=== PATIENT | female | born 1980 | race African-American/Black ===

== ENCOUNTER 2017-08-10 20:41 | Inpatient (IN) | payer BC, OTHER ==
[2017-08-11] MEDS: SOD CHLORIDE 0.9% 1,000 ML IV (00:01)
[2017-08-11 00:07] LABS: ADD MAN DIFF? NO
[2017-08-11] MEDS: ONDANSETRON 4 MG INJ IV (00:07)
[2017-08-11] MEDS: morphine 4 MG/ML VIAL IV (00:07)
[2017-08-11 00:27] LABS: ALANINE AMINOTRANSFERASE 20 IU/L (13-69); ALBUMIN 4.1 g/dl (3.3-4.9); ALKALINE PHOSPHATASE 101 IU/L (42-121); ANION GAP 13 (8-16); ASPARTATE AMINO TRANSFERASE 13 IU/L (15-46); BILIRUBIN,INDIRECT 0.7 mg/dl (0-1.1); BILIRUBIN,TOTAL 0.7 mg/dl (0.2-1.3); BLOOD UREA NITROGEN 9 mg/dl (7-20); CALCIUM 9.3 mg/dl (8.4-10.2); CARBON DIOXIDE 29 mmol/L (21-31); CHLORIDE 108 mmol/L (97-110); CREATININE 0.97 mg/dl (0.44-1.00); GLUCOSE 88 mg/dl (70-220); LIPASE 100 U/L (23-300); POTASSIUM 4.1 mmol/L (3.5-5.1); SODIUM 146 mmol/L (135-144); TOTAL PROTEIN 7.8 g/dl (6.1-8.1)
[2017-08-11 01:08] LABS: WHITE BLOOD COUNT 10.7 10^3/ul (4.8-10.8)
[2017-08-11 01:08] LABS: BASOPHIL # 0.1 10^3/ul (0.0-0.1); BASOPHILS % 0.9 % (0.0-2.0); EOSINOPHILS # 0.2 10^3/ul (0.0-0.5); EOSINOPHILS % 1.6 % (0.0-7.0); HEMATOCRIT 38.9 % (37.0-47.0); HEMOGLOBIN 11.3 g/dl (12.0-16.0); LYMPHOCYTES # 4.5 10^3/ul (0.8-2.9); LYMPHOCYTES % 41.6 % (15.0-51.0); MEAN CORPUSCULAR HEMOGLOBIN 22.4 pg (29.0-33.0); MEAN CORPUSCULAR VOLUME 77.2 fl (82.0-101.0); MEAN PLATELET VOLUME 9.5 fl (7.4-10.4); MONOCYTE # 0.8 10^3/ul (0.3-0.9); MONOCYTES % 7.6 % (0.0-11.0); NEUTROPHIL # 5.2 10^3/ul (1.6-7.5); PLATELET COUNT 521 10^3/UL (140-415); RED BLOOD COUNT 5.04 10^6/ul (4.20-5.40); RED CELL DISTRIBUTION WIDTH 18.6 % (11.5-14.5)
[2017-08-11] MEDS ORDERED: ONDANSETRON 4 MG INJ IV (02:00)
[2017-08-11] MEDS ORDERED: NACL 0.9% 3 ML SYG IV (02:00)
[2017-08-11] MEDS ORDERED: morphine 2 MG INJ IV (02:00)
[2017-08-11] MEDS ORDERED: ACETAMINOPHEN 325 MG TAB PO (02:00)
[2017-08-11] MEDS: HYDROCODONE/APAP (5/325) TAB PO (06:02)
[2017-08-11 06:58] LABS: ADD UMIC YES; UR ASCORBIC ACID NEGATIVE (NEGATIVE); UR BILIRUBIN (Dip) NEGATIVE (NEGATIVE); UR BLOOD (Dip) 3+ mg/dL (NEGATIVE); UR CLARITY CLEAR (CLEAR); UR COLOR YELLOW (YELLOW); UR GLUCOSE (Dip) NEGATIVE (NEGATIVE); UR KETONES (Dip) NEGATIVE (NEGATIVE); UR LEUKOCYTE ESTERASE (Dip) 1+ Leu/ul (NEGATIVE); UR MUCUS FEW /HPF (NONE SEEN); UR NITRITE (Dip) NEGATIVE (NEGATIVE); UR RBC 2 /HPF (0-5); UR SPECIFIC GRAVITY (Dip) 1.012 (1.003-1.030); UR SQUAMOUS EPITHELIAL CELL FEW /HPF (FEW); UR TOTAL PROTEIN (Dip) NEGATIVE (NEGATIVE); UR UROBILINOGEN (Dip) NEGATIVE (NEGATIVE); UR WBC 5 /HPF (0-5)
[2017-08-11] MEDS: ENOXAPARIN 40 MG/0.4 ML SYG SC (08:42)
[2017-08-11 09:14] LABS: HIV 1&2 ANTIBODY NEGATIVE (NEGATIVE)
[2017-08-11] MEDS ORDERED: MELOXICAM 7.5 MG TAB PO (11:00)
[2017-08-11] MEDS: KETOROLAC 15 MG INJ IV ×2 (11:24→18:00)
[2017-08-11 21:09] LABS: RAPID PLASMA REAGIN NONREACTIVE (NR)
[2017-08-12] MEDS: HYDROCODONE/APAP (5/325) TAB PO (00:20)
[2017-08-12 05:17] LABS: ADD MAN DIFF? NO
[2017-08-12 05:24] LABS: WHITE BLOOD COUNT 8.6 10^3/ul (4.8-10.8)
[2017-08-12 05:24] LABS: BASOPHIL # 0.1 10^3/ul (0.0-0.1); BASOPHILS % 0.9 % (0.0-2.0); EOSINOPHILS # 0.2 10^3/ul (0.0-0.5); EOSINOPHILS % 2.2 % (0.0-7.0); HEMATOCRIT 33.9 % (37.0-47.0); HEMOGLOBIN 10.1 g/dl (12.0-16.0); LYMPHOCYTES # 3.9 10^3/ul (0.8-2.9); MEAN CORPUSCULAR HEMOGLOBIN 22.8 pg (29.0-33.0); MEAN CORPUSCULAR HGB CONC 29.8 g/dl (32.0-37.0); MEAN CORPUSCULAR VOLUME 76.5 fl (82.0-101.0); MEAN PLATELET VOLUME 9.5 fl (7.4-10.4); MONOCYTE # 0.8 10^3/ul (0.3-0.9); MONOCYTES % 8.7 % (0.0-11.0); NEUTROPHIL # 3.7 10^3/ul (1.6-7.5); PLATELET COUNT 432 10^3/UL (140-415); RED BLOOD COUNT 4.43 10^6/ul (4.20-5.40); RED CELL DISTRIBUTION WIDTH 17.9 % (11.5-14.5)
[2017-08-12 05:59] LABS: ANION GAP 12 (8-16); BLOOD UREA NITROGEN 12 mg/dl (7-20); CALCIUM 8.8 mg/dl (8.4-10.2); CARBON DIOXIDE 29 mmol/L (21-31); CHLORIDE 107 mmol/L (97-110); GLUCOSE 88 mg/dl (70-220); POTASSIUM 3.8 mmol/L (3.5-5.1); SODIUM 144 mmol/L (135-144)
[2017-08-12 06:46] LABS: HEMOGLOBIN A1C 5.4 % (0-5.9)
[2017-08-12] MEDS: GABAPENTIN 300 MG CAP PO ×2 (08:43→12:34)
[2017-08-12] MEDS: KETOROLAC 15 MG INJ IV (08:44)
[2017-08-12 09:36] LABS: ADD MAN DIFF? NO
[2017-08-12 09:45] LABS: BASOPHIL # 0.1 10^3/ul (0.0-0.1); BASOPHILS % 0.7 % (0.0-2.0); EOSINOPHILS # 0.1 10^3/ul (0.0-0.5); EOSINOPHILS % 1.4 % (0.0-7.0); HEMATOCRIT 34.8 % (37.0-47.0); HEMOGLOBIN 10.4 g/dl (12.0-16.0); LYMPHOCYTES # 2.6 10^3/ul (0.8-2.9); LYMPHOCYTES % 28.9 % (15.0-51.0); MEAN CORPUSCULAR HGB CONC 29.9 g/dl (32.0-37.0); MEAN CORPUSCULAR VOLUME 76.8 fl (82.0-101.0); MEAN PLATELET VOLUME 9.6 fl (7.4-10.4); MONOCYTE # 0.7 10^3/ul (0.3-0.9); MONOCYTES % 7.3 % (0.0-11.0); NEUTROPHIL # 5.6 10^3/ul (1.6-7.5); NEUTROPHILS % 61.3 % (39.0-77.0); PLATELET COUNT 445 10^3/UL (140-415); RED BLOOD COUNT 4.53 10^6/ul (4.20-5.40)
[2017-08-12 09:45] LABS: WHITE BLOOD COUNT 9.1 10^3/ul (4.8-10.8)
[2017-08-12] MEDS: LORAZEPAM 1 MG TAB PO (10:54)
== END 2017-08-12 17:20 | disposition home or self-care (01) | DRG 776 ==
LOC: E/R 20:41 → MS1 08-11 01:36
DX: O99.355 Diseases of the nervous system complicating the puerperium (principal); E87.0 Hyperosmolality and hypernatremia; Z68.41 Body mass index [BMI] 40.0-44.9, adult; O98.33 Other infections with a predominantly sexual mode of transmission complicating the puerperium; A63.0 Anogenital (venereal) warts; O99.285 Endocrine, nutritional and metabolic diseases complicating the puerperium; M54.5 Low back pain; O99.215 Obesity complicating the puerperium; E66.01 Morbid (severe) obesity due to excess calories; O99.345 Other mental disorders complicating the puerperium; F41.9 Anxiety disorder, unspecified; G89.18 Other acute postprocedural pain
CPT/HCPCS: 36415; 72148; 80048; 80053; 81001; 83036; 83690; 83735; 85025; 86592; 86692; 86703; 87086; 96374; 96375; 97116; 97161; 99285-25

== ENCOUNTER 2018-07-31 12:32 | Inpatient (IN) | payer BC ==
[2018-07-31 13:19] LABS: ADD MAN DIFF? NO
[2018-07-31 13:20] LABS: BASOPHIL # 0.1 10^3/ul (0.0-0.1); BASOPHILS % 0.5 % (0.0-2.0); EOSINOPHILS # 0.1 10^3/ul (0.0-0.5); HEMATOCRIT 39.8 % (37.0-47.0); HEMOGLOBIN 12.2 g/dl (12.0-16.0); LYMPHOCYTES # 3.6 10^3/ul (0.8-2.9); LYMPHOCYTES % 24.7 % (15.0-51.0); MEAN CORPUSCULAR HEMOGLOBIN 25.1 pg (29.0-33.0); MEAN CORPUSCULAR HGB CONC 30.7 g/dl (32.0-37.0); MEAN CORPUSCULAR VOLUME 81.7 fl (82.0-101.0); MEAN PLATELET VOLUME 8.8 fl (7.4-10.4); MONOCYTE # 1.2 10^3/ul (0.3-0.9); MONOCYTES % 7.9 % (0.0-11.0); NEUTROPHIL # 9.6 10^3/ul (1.6-7.5); NEUTROPHILS % 65.6 % (39.0-77.0); PLATELET COUNT 447 10^3/UL (140-415); RED BLOOD COUNT 4.87 10^6/ul (4.20-5.40); RED CELL DISTRIBUTION WIDTH 15.9 % (11.5-14.5)
[2018-07-31 13:20] LABS: WHITE BLOOD COUNT 14.6 10^3/ul (4.8-10.8)
[2018-07-31] MEDS: DIAZEPAM 5 MG/ML SYG IV (13:26)
[2018-07-31] MEDS: ONDANSETRON 4 MG INJ IV (13:26)
[2018-07-31] MEDS: HYDROmorphONE 1 MG/ML SYG IV (13:27)
[2018-07-31 13:40] LABS: PARTIAL THROMBOPLASTIN TIME 29.2 Sec (23.0-35.0)
[2018-07-31 13:42] LABS: ANION GAP 8 (5-13); BLOOD UREA NITROGEN 13 mg/dl (7-20); CARBON DIOXIDE 28 mmol/L (21-31); CHLORIDE 104 mmol/L (97-110); CREATININE 0.81 mg/dl (0.44-1.00); Estimated GFR > 60 mL/min (>60); GLUCOSE 94 mg/dl (70-220); POTASSIUM 3.9 mmol/L (3.5-5.1); SODIUM 140 mmol/L (135-144)
[2018-07-31 13:50] LABS: INR 0.95; PROTIME 12.8 Sec (11.9-14.9)
[2018-07-31] MEDS: KETOROLAC 15 MG INJ IV (15:14)
[2018-07-31] MEDS: SOD CHLORIDE 0.9% 1,000 ML IV (15:14)
[2018-07-31] MEDS ORDERED: ONDANSETRON 4 MG INJ IV ×2 (18:00→21:00)
[2018-07-31] MEDS ORDERED: ACETAMINOPHEN 325 MG TAB PO ×2 (18:00→21:00)
[2018-07-31] MEDS ORDERED: ALBUTEROL/IPRATROPIUM (NEB) 3 ML AMP HHN (21:00)
[2018-07-31] MEDS ORDERED: NACL 0.9% 3 ML SYG IV (21:00)
[2018-07-31] MEDS: GABAPENTIN 300 MG CAP PO (22:15)
[2018-07-31] MEDS: traZODone 100 MG TAB PO (22:15)
[2018-07-31] MEDS: DEXAMETHASONE 4 MG/ML 1 ML INJ IV (23:12)
[2018-08-01] MEDS: HYDROmorphONE 0.5 MG/0.5 ML SYG IV ×2 (01:52→09:00)
[2018-08-01 05:54] LABS: ADD MAN DIFF? NO
[2018-08-01 06:03] LABS: BASOPHILS % 0.1 % (0.0-2.0); HEMATOCRIT 41.9 % (37.0-47.0); HEMOGLOBIN 12.8 g/dl (12.0-16.0); LYMPHOCYTES # 1.1 10^3/ul (0.8-2.9); LYMPHOCYTES % 7.2 % (15.0-51.0); MEAN CORPUSCULAR HGB CONC 30.5 g/dl (32.0-37.0); MEAN CORPUSCULAR VOLUME 81.7 fl (82.0-101.0); MEAN PLATELET VOLUME 9.2 fl (7.4-10.4); MONOCYTE # 0.2 10^3/ul (0.3-0.9); NEUTROPHIL # 13.4 10^3/ul (1.6-7.5); NEUTROPHILS % 91.1 % (39.0-77.0); PLATELET COUNT 490 10^3/UL (140-415); RED BLOOD COUNT 5.13 10^6/ul (4.20-5.40); RED CELL DISTRIBUTION WIDTH 15.8 % (11.5-14.5)
[2018-08-01 06:03] LABS: WHITE BLOOD COUNT 14.8 10^3/ul (4.8-10.8)
[2018-08-01 06:33] LABS: ALANINE AMINOTRANSFERASE 12 IU/L (13-69); ALBUMIN 4.3 g/dl (3.3-4.9); ALBUMIN/GLOBULIN RATIO 1.26; ALKALINE PHOSPHATASE 71 IU/L (42-121); ANION GAP 14 (5-13); ASPARTATE AMINO TRANSFERASE 16 IU/L (15-46); BILIRUBIN,INDIRECT 0.5 mg/dl (0-1.1); BILIRUBIN,TOTAL 0.5 mg/dl (0.2-1.3); BLOOD UREA NITROGEN 11 mg/dl (7-20); CALCIUM 9.4 mg/dl (8.4-10.2); CARBON DIOXIDE 24 mmol/L (21-31); CHLORIDE 105 mmol/L (97-110); CREATININE 0.74 mg/dl (0.44-1.00); Estimated GFR > 60 mL/min (>60); GLUCOSE 134 mg/dl (70-220); MAGNESIUM 2.3 mg/dl (1.7-2.5); PHOSPHORUS 3.5 mg/dl (2.5-4.9); POTASSIUM 4.6 mmol/L (3.5-5.1); SODIUM 143 mmol/L (135-144); TOTAL PROTEIN 7.7 g/dl (6.1-8.1)
[2018-08-01] MEDS: ARIPIPRAZOLE 5 MG TAB PO (09:02)
[2018-08-01] MEDS: GABAPENTIN 300 MG CAP PO ×3 (09:02→20:54)
[2018-08-01] MEDS: DULOXETINE 30 MG CAP DR PO (09:06)
[2018-08-01] MEDS ORDERED: morphine 4 MG/ML VIAL IV (11:00)
[2018-08-01 12:51] LABS: ADD UMIC YES; UR ASCORBIC ACID NEGATIVE (NEGATIVE); UR BACTERIA FEW /HPF (NONE SEEN); UR BILIRUBIN (Dip) NEGATIVE (NEGATIVE); UR BLOOD (Dip) 3+ mg/dL (NEGATIVE); UR CLARITY SLIGHTLY CLOUDY (CLEAR); UR COLOR YELLOW (YELLOW); UR GLUCOSE (Dip) NEGATIVE (NEGATIVE); UR KETONES (Dip) NEGATIVE (NEGATIVE); UR LEUKOCYTE ESTERASE (Dip) NEGATIVE Leu/ul (NEGATIVE); UR MUCUS FEW /HPF (NONE SEEN); UR NITRITE (Dip) NEGATIVE (NEGATIVE); UR RBC > 182 /HPF (0-5); UR SPECIFIC GRAVITY (Dip) 1.021 (1.003-1.030); UR SQUAMOUS EPITHELIAL CELL FEW /HPF (FEW); UR TOTAL PROTEIN (Dip) NEGATIVE (NEGATIVE); UR UROBILINOGEN (Dip) NEGATIVE (NEGATIVE); UR WBC 6 /HPF (0-5)
[2018-08-01 13:00] LABS: AMPHETAMINE/METHAMPHETAMINE Negative (NEGATIVE); BARBITURATES Negative (NEGATIVE); BENZODIAZEPINES Negative (NEGATIVE); CANNABINOIDS Negative (NEGATIVE); COCAINE Negative (NEGATIVE); OPIATES Positive (NEGATIVE)
[2018-08-01] MEDS: HYDROCODONE/APAP (5/325) TAB PO (13:05)
[2018-08-01] MEDS: OXYCODONE/ACETAMINOPHEN (5/325) TAB PO (16:55)
[2018-08-01] MEDS: traZODone 100 MG TAB PO (20:54)
[2018-08-02 05:52] LABS: ADD MAN DIFF? NO
[2018-08-02 06:00] LABS: WHITE BLOOD COUNT 16.9 10^3/ul (4.8-10.8)
[2018-08-02 06:00] LABS: ABNORMAL IP MESSAGE 1; BASOPHIL # 0.1 10^3/ul (0.0-0.1); BASOPHILS % 0.3 % (0.0-2.0); EOSINOPHILS # 0.1 10^3/ul (0.0-0.5); EOSINOPHILS % 0.5 % (0.0-7.0); HEMOGLOBIN 11.6 g/dl (12.0-16.0); LYMPHOCYTES # 5.1 10^3/ul (0.8-2.9); LYMPHOCYTES % 29.9 % (15.0-51.0); MEAN CORPUSCULAR HEMOGLOBIN 25.4 pg (29.0-33.0); MEAN CORPUSCULAR HGB CONC 30.5 g/dl (32.0-37.0); MEAN CORPUSCULAR VOLUME 83.3 fl (82.0-101.0); MEAN PLATELET VOLUME 9.2 fl (7.4-10.4); MONOCYTE # 1.1 10^3/ul (0.3-0.9); MONOCYTES % 6.7 % (0.0-11.0); NEUTROPHIL # 10.5 10^3/ul (1.6-7.5); NEUTROPHILS % 62.2 % (39.0-77.0); PLATELET COUNT 438 10^3/UL (140-415); RED BLOOD COUNT 4.56 10^6/ul (4.20-5.40); RED CELL DISTRIBUTION WIDTH 15.9 % (11.5-14.5)
[2018-08-02 06:13] LABS: POSITIVE DIFF @See below
[2018-08-02 06:20] LABS: IRON 41 ug/dl (35-150)
[2018-08-02 06:29] LABS: % IRON SATURATION 13 % SAT (22-52); TOTAL IRON BINDING CAPACITY 322 ug/dl (241-421)
[2018-08-02 06:38] LABS: ANION GAP 9 (5-13); BLOOD UREA NITROGEN 15 mg/dl (7-20); CALCIUM 8.9 mg/dl (8.4-10.2); CARBON DIOXIDE 28 mmol/L (21-31); CHLORIDE 105 mmol/L (97-110); Estimated GFR > 60 mL/min (>60); GLUCOSE 96 mg/dl (70-220); MAGNESIUM 2.2 mg/dl (1.7-2.5); SODIUM 142 mmol/L (135-144)
[2018-08-02 06:56] LABS: THYROID STIMULATING HORMONE 0.263 MIU/L (0.465-4.680)
[2018-08-02 07:49] LABS: HEMOGLOBIN A1C 5.5 % (0-5.9)
[2018-08-02] MEDS: ARIPIPRAZOLE 5 MG TAB PO (08:57)
[2018-08-02] MEDS: DULOXETINE 30 MG CAP DR PO (08:57)
[2018-08-02] MEDS: GABAPENTIN 300 MG CAP PO ×2 (08:57→12:46)
[2018-08-02] MEDS: HYDROCODONE/APAP (5/325) TAB PO ×2 (09:02→19:07)
[2018-08-02] MEDS: POLYETHYLENE GLYCOL 17 GM PACKET PO (14:18)
[2018-08-02] MEDS: CEFTRIAXONE 1 GM/50 ML (PMX) 50 ML IVPB (18:58)
[2018-08-02] MEDS: traZODone 100 MG TAB PO (21:15)
[2018-08-02] MEDS: GABAPENTIN 400 MG CAP PO (21:15)
[2018-08-03 05:40] LABS: ADD MAN DIFF? NO
[2018-08-03 05:54] LABS: WHITE BLOOD COUNT 14.8 10^3/ul (4.8-10.8)
[2018-08-03 05:54] LABS: ABNORMAL IP MESSAGE 1; BASOPHIL # 0.1 10^3/ul (0.0-0.1); BASOPHILS % 0.6 % (0.0-2.0); EOSINOPHILS # 0.2 10^3/ul (0.0-0.5); EOSINOPHILS % 1.5 % (0.0-7.0); HEMATOCRIT 38.9 % (37.0-47.0); HEMOGLOBIN 11.7 g/dl (12.0-16.0); LYMPHOCYTES # 6.3 10^3/ul (0.8-2.9); LYMPHOCYTES % 42.3 % (15.0-51.0); MEAN CORPUSCULAR HEMOGLOBIN 25.1 pg (29.0-33.0); MEAN CORPUSCULAR HGB CONC 30.1 g/dl (32.0-37.0); MEAN CORPUSCULAR VOLUME 83.5 fl (82.0-101.0); MEAN PLATELET VOLUME 9.1 fl (7.4-10.4); MONOCYTE # 1.1 10^3/ul (0.3-0.9); MONOCYTES % 7.3 % (0.0-11.0); NEUTROPHIL # 7.1 10^3/ul (1.6-7.5); PLATELET COUNT 428 10^3/UL (140-415); RED BLOOD COUNT 4.66 10^6/ul (4.20-5.40); RED CELL DISTRIBUTION WIDTH 15.8 % (11.5-14.5)
[2018-08-03 06:12] LABS: ANION GAP 8 (5-13); BLOOD UREA NITROGEN 13 mg/dl (7-20); CALCIUM 8.9 mg/dl (8.4-10.2); CARBON DIOXIDE 30 mmol/L (21-31); CHLORIDE 105 mmol/L (97-110); CREATININE 0.93 mg/dl (0.44-1.00); Estimated GFR > 60 mL/min (>60); GLUCOSE 90 mg/dl (70-220); POTASSIUM 4.1 mmol/L (3.5-5.1); SODIUM 143 mmol/L (135-144)
[2018-08-03 06:24] LABS: FREE THYROXINE INDEX (Calc) 2.13 ug/ml (0.65-3.89); T3 UPTAKE 34.3 % (23.5-40.5); T4 (THYROXINE) 6.2 ug/dl (5.5-11.0)
[2018-08-03 06:37] LABS: THYROID STIMULATING HORMONE 0.827 MIU/L (0.465-4.680)
[2018-08-03 06:44] LABS: POSITIVE DIFF @See below
[2018-08-03] MEDS: HYDROCODONE/APAP (5/325) TAB PO ×2 (07:22→18:18)
[2018-08-03] MEDS: POLYETHYLENE GLYCOL 17 GM PACKET PO (08:15)
[2018-08-03] MEDS: ARIPIPRAZOLE 5 MG TAB PO (08:15)
[2018-08-03] MEDS: GABAPENTIN 400 MG CAP PO ×3 (08:15→21:24)
[2018-08-03] MEDS: DULOXETINE 30 MG CAP DR PO (08:15)
[2018-08-03] MEDS: ENOXAPARIN 40 MG/0.4 ML SYG SC (08:19)
[2018-08-03] MEDS: IBUPROFEN 600 MG TAB PO (11:44)
[2018-08-03] MEDS: CEFTRIAXONE 1 GM/50 ML (PMX) 50 ML IVPB (18:18)
[2018-08-03] MEDS: traZODone 100 MG TAB PO (21:24)
[2018-08-04 06:02] LABS: ADD MAN DIFF? NO
[2018-08-04 06:12] LABS: WHITE BLOOD COUNT 12.7 10^3/ul (4.8-10.8)
[2018-08-04 06:12] LABS: ABNORMAL IP MESSAGE 1; BASOPHIL # 0.1 10^3/ul (0.0-0.1); BASOPHILS % 0.9 % (0.0-2.0); EOSINOPHILS # 0.2 10^3/ul (0.0-0.5); EOSINOPHILS % 1.6 % (0.0-7.0); HEMATOCRIT 39.1 % (37.0-47.0); HEMOGLOBIN 11.9 g/dl (12.0-16.0); LYMPHOCYTES % 39.4 % (15.0-51.0); MEAN CORPUSCULAR HEMOGLOBIN 25.3 pg (29.0-33.0); MEAN CORPUSCULAR HGB CONC 30.4 g/dl (32.0-37.0); MEAN CORPUSCULAR VOLUME 83.2 fl (82.0-101.0); MONOCYTES % 7.6 % (0.0-11.0); NEUTROPHIL # 6.4 10^3/ul (1.6-7.5); NEUTROPHILS % 50.2 % (39.0-77.0); PLATELET COUNT 422 10^3/UL (140-415); RED CELL DISTRIBUTION WIDTH 15.9 % (11.5-14.5)
[2018-08-04 06:20] LABS: POSITIVE DIFF @See below
[2018-08-04 06:25] LABS: ANION GAP 6 (5-13); BLOOD UREA NITROGEN 12 mg/dl (7-20); CALCIUM 9.1 mg/dl (8.4-10.2); CARBON DIOXIDE 30 mmol/L (21-31); CHLORIDE 104 mmol/L (97-110); CREATININE 0.89 mg/dl (0.44-1.00); Estimated GFR > 60 mL/min (>60); GLUCOSE 87 mg/dl (70-220); POTASSIUM 3.8 mmol/L (3.5-5.1); SODIUM 140 mmol/L (135-144)
[2018-08-04] MEDS: GABAPENTIN 400 MG CAP PO ×2 (08:25→14:06)
[2018-08-04] MEDS: ARIPIPRAZOLE 5 MG TAB PO (08:25)
[2018-08-04] MEDS: POLYETHYLENE GLYCOL 17 GM PACKET PO (08:25)
[2018-08-04] MEDS: DULOXETINE 30 MG CAP DR PO (08:25)
[2018-08-04] MEDS: ENOXAPARIN 40 MG/0.4 ML SYG SC (08:27)
[2018-08-04] MEDS: HYDROCODONE/APAP (5/325) TAB PO (08:36)
== END 2018-08-04 15:40 | disposition home health service (06) | DRG 552 ==
LOC: 2NE 20:46 → E/R 12:32 → 2NE 17:58
DX: M51.16 Intervertebral disc disorders with radiculopathy, lumbar region (principal); Z68.41 Body mass index [BMI] 40.0-44.9, adult; N39.0 Urinary tract infection, site not specified; E66.01 Morbid (severe) obesity due to excess calories; M48.07 Spinal stenosis, lumbosacral region; M51.17 Intervertebral disc disorders with radiculopathy, lumbosacral region; R25.1 Tremor, unspecified; F32.9 Major depressive disorder, single episode, unspecified; F41.9 Anxiety disorder, unspecified
CPT/HCPCS: 36415; 72146; 72148; 80048; 80053; 80307; 81001; 83036; 83540; 83735; 84100; 84436; 84443; 84479; 84703; 85025; 85610; 85730; 87086; 96361; 96374; 96375; 97116; 97162; 97530; 99285-25